=== PATIENT | female | born 1965 | race Two or more races ===

== ENCOUNTER 2018-06-23 13:20 | Outpatient (CLI) | payer OTHER ==
[~2018-06-23 13:20] MED LIST: AMOX1TAB12 PO; INTESTINEX680 MG PO; NASONEX17 GM NS; ZYRTEC10 MG PO
== END 2018-06-23 13:31 | disposition home or self-care (01) ==
LOC: MRI 13:20
DX: R41.3 Other amnesia (principal)
CPT/HCPCS: 70551

== ENCOUNTER 2021-03-07 08:46 | Outpatient (CLI) | payer OTHER | END 2021-03-07 08:54 | disposition home or self-care (01) | LOC: MRI 08:46 | PROVIDERS: ATTEND Internal Medicine Cardiovascular Disease | DX: M46.47 Discitis, unspecified, lumbosacral region (principal) | CPT/HCPCS: 72148 ==

== ENCOUNTER 2021-10-10 10:47 | Outpatient (CLI) | payer OTHER | END 2021-10-10 10:56 | disposition home or self-care (01) | LOC: RAD 10:47 | DX: M62.830 Muscle spasm of back (principal); S96.912A Strain of unspecified muscle and tendon at ankle and foot level, left foot, initial encounter; S82.52XA Displaced fracture of medial malleolus of left tibia, initial encounter for closed fracture; M67.441 Ganglion, right hand; M51.36 Other intervertebral disc degeneration, lumbar region; M40.55 Lordosis, unspecified, thoracolumbar region; M16.11 Unilateral primary osteoarthritis, right hip ==